=== PATIENT | male | born 1990 ===

== ENCOUNTER 2022-04-27 12:15 | Emergency (ER) | payer MEDICAID ==
[~2022-04-27] VITALS: Ht 180.3 cm; Wt 81.8 kg
[2022-04-27 12:30] VITALS: BP 120/82
== END 2022-04-27 16:07 | disposition left against medical advice (07) ==
LOC: ER 12:16
DX: L02.416 Cutaneous abscess of left lower limb (principal); Z53.21 Procedure and treatment not carried out due to patient leaving prior to being seen by health care provider